=== PATIENT | female | born 1965 | race Two or more races ===

== ENCOUNTER 2021-11-28 17:02 | Emergency (ER) | payer OTHER ==
[~2021-11-28] VITALS: Ht 154.9 cm; Wt 66.7 kg
[~2021-11-28 17:02] MED LIST: MEDROLPACK PO; RELAGESIC 5001 EACH PO
[2021-11-28] MEDS ORDERED: LIPITOR20 MG PO (17:14)
[2021-11-28] MEDS ORDERED: KEVZARA200 MG/1.1 SQ (17:15)
[2021-11-28] MEDS ORDERED: DOXAZOSIN MESYLA4 MG PO (17:16)
== END 2021-11-28 21:53 | disposition home or self-care (01) ==
LOC: ER 17:02
DX: U07.1 COVID-19 (principal); A49.3 Mycoplasma infection, unspecified site

== ENCOUNTER 2021-12-22 14:20 | Outpatient (CLI) | payer OTHER ==
[~2021-12-22 14:20] MED LIST changes: +DOXAZOSIN MESYLA4 MG PO; +KEVZARA200 MG/1.1 SQ; +LIPITOR20 MG PO
== END 2021-12-22 14:50 | disposition home or self-care (01) ==
LOC: SONOGRAMA 14:20
PROVIDERS: ATTEND General Practice
DX: N63.0 Unspecified lump in unspecified breast (principal)

== ENCOUNTER 2022-04-19 07:57 | Outpatient (CLI) | payer OTHER | END 2022-04-19 08:25 | disposition home or self-care (01) | LOC: MAMO-SONO 07:57 | PROVIDERS: ATTEND General Practice | DX: Z12.31 Encounter for screening mammogram for malignant neoplasm of breast (principal) ==

== ENCOUNTER 2022-06-22 14:30 | Outpatient (CLI) | payer OTHER | END 2022-06-22 14:38 | disposition home or self-care (01) | LOC: SONOGRAMA 14:30 | PROVIDERS: ATTEND Obstetrics & Gynecology | DX: N94.89 Other specified conditions associated with female genital organs and menstrual cycle (principal) ==

== ENCOUNTER 2023-04-03 08:32 | Outpatient (CLI) | payer OTHER | END 2023-04-03 08:37 | disposition home or self-care (01) | LOC: MRI 08:32 | PROVIDERS: ATTEND Internal Medicine Rheumatology | DX: M54.16 Radiculopathy, lumbar region (principal) | CPT/HCPCS: 72146 ==

== ENCOUNTER 2023-08-05 10:09 | Outpatient (CLI) | payer OTHER ==
[2023-08-05] MEDS ORDERED: DICLOFENAC SODI75 MG PO (14:29)
== END 2023-08-05 10:12 | disposition home or self-care (01) ==
LOC: SONOGRAMA 10:09
PROVIDERS: ATTEND General Practice
DX: E04.9 Nontoxic goiter, unspecified (principal)

== ENCOUNTER 2023-08-05 12:26 | Emergency (ER) | payer OTHER ==
[~2023-08-05] VITALS: Ht 154.9 cm; Wt 63.5 kg
[2023-08-05] MEDS ORDERED: KETOROLAC TROMETHAMINE 60 MG VIAL IM ONE (13:30)
[2023-08-05] MEDS ORDERED: DICLOFENAC SODI75 MG PO (14:29)
== END 2023-08-05 15:03 | disposition home or self-care (01) ==
LOC: ER 12:26
DX: M77.8 Other enthesopathies, not elsewhere classified (principal)

== ENCOUNTER 2023-11-22 14:18 | Outpatient (CLI) | payer OTHER ==
[~2023-11-22 14:18] MED LIST changes: +DICLOFENAC SODI75 MG PO
== END 2023-11-22 14:25 | disposition home or self-care (01) ==
LOC: MAMO-SONO 14:18 → SONOGRAMA 14:18
DX: N64.4 Mastodynia (principal); Z12.31 Encounter for screening mammogram for malignant neoplasm of breast

== ENCOUNTER 2024-01-07 14:27 | Outpatient (CLI) | payer OTHER | END 2024-01-07 14:56 | disposition home or self-care (01) | LOC: SONOGRAMA 14:27 | PROVIDERS: ATTEND General Practice | DX: N94.89 Other specified conditions associated with female genital organs and menstrual cycle (principal) ==

== ENCOUNTER 2024-06-19 14:15 | Outpatient (CLI) | payer OTHER | END 2024-06-19 14:20 | disposition home or self-care (01) | LOC: SONOGRAMA 14:15 | PROVIDERS: ATTEND General Practice | DX: M25.511 Pain in right shoulder (principal) ==

== ENCOUNTER 2024-07-30 07:52 | Outpatient (CLI) | payer OTHER | END 2024-07-30 07:56 | disposition home or self-care (01) | LOC: SONOGRAMA 07:52 | PROVIDERS: ATTEND General Practice | DX: R10.9 Unspecified abdominal pain (principal) ==

== ENCOUNTER 2024-10-13 07:11 | Outpatient (CLI) | payer OTHER | END 2024-10-13 07:12 | disposition home or self-care (01) | LOC: SONOGRAMA 07:11 | PROVIDERS: ATTEND General Practice | DX: N94.89 Other specified conditions associated with female genital organs and menstrual cycle (principal) ==

== ENCOUNTER → 2024-11-10 14:09 | Outpatient (CLI) | payer OTHER | END | disposition home or self-care (01) | LOC: SONOGRAMA 14:09 | PROVIDERS: ATTEND General Practice | DX: D17.9 Benign lipomatous neoplasm, unspecified (principal) ==

== ENCOUNTER 2025-02-16 14:43 | Outpatient (CLI) | payer OTHER | END 2025-02-16 14:51 | disposition home or self-care (01) | LOC: MRI 14:43 | DX: M75.00 Adhesive capsulitis of unspecified shoulder (principal) | CPT/HCPCS: 73221 ==

== ENCOUNTER 2025-03-09 14:22 | Outpatient (CLI) | payer OTHER | END 2025-03-09 14:26 | disposition home or self-care (01) | LOC: MRI 14:22 | PROVIDERS: ATTEND Specialist | DX: M48.062 Spinal stenosis, lumbar region with neurogenic claudication (principal); M51.26 Other intervertebral disc displacement, lumbar region; M51.17 Intervertebral disc disorders with radiculopathy, lumbosacral region | CPT/HCPCS: 72148 ==